=== PATIENT | female | born 1950 | race Caucasian/White ===

== ENCOUNTER 2019-04-09 16:14 | Emergency (ER) | payer MEDICARE, OTHER ==
[~2019-04-09] VITALS: Ht 172.7 cm; Wt 73.4 kg
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
--- NOTE | 2019-04-09 16:33 | NUR ---
Pt to 34 from lobby wearing mask
[2019-04-09] MEDS ORDERED: SODIUM CHLORIDE FLUSH 10ML SYR IVF ONE (17:30)
[2019-04-09 17:35] LABS: BASOPHILS # (AUTO) 0.02 x10^3/uL (0-0.1); BASOPHILS % (AUTO) 0 % (0-1); EOSINOPHILS # (AUTO) 0.04 x10^3/uL (0-0.4); EOSINOPHILS % (AUTO) 1 % (1-7); LYMPHOCYTES # (AUTO) 0.71 x10^3/uL (1-3.4); LYMPHOCYTES % (AUTO) 10 % (22-44); MD NO; MEAN CORPUSCULAR HEMOGLOBIN 33.2 pg (27.0-34.8); MEAN CORPUSCULAR HGB CONC 33.2 g/dL (32.4-35.8); MEAN PLATELET VOLUME 7.1 fL (7.4-10.4); MONOCYTES # (AUTO) 0.45 x10^3/uL (0.2-0.8); MONOCYTES % (AUTO) 6 % (2-9); NEUTROPHILS # (AUTO) 6.21 x10^3/uL (1.8-6.8); NEUTROPHILS % (AUTO) 84 % (42-75); PLATELET COUNT 302 x10^3/uL (130-400); RED BLOOD COUNT 4.05 x10^6/uL (3.82-5.3); RED CELL DISTRIBUTION WIDTH 13.7 % (9.6-15.2)
[2019-04-09 17:48] LABS: ALBUMIN 4.1 g/dL (3.4-5.0); ANION GAP 5 mmol/L (5-15); CALCIUM 9.1 mg/dL (8.5-10.1); CHLORIDE 101 mmol/L (98-107); CREATININE 0.87 mg/dL (0.55-1.02)
[2019-04-09 17:52] LABS: TROPONIN I < 0.015 ng/mL (0.000-0.045)
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
--- NOTE | 2019-04-09 18:24 | NUR ---
PT BACK FROM IMAGING.
--- NOTE | 2019-04-09 18:54 | NUR ---
BEDSIDE REPORT TO DANNY HARDIN.
[2019-04-09 19:01] VITALS: BP 137/76
--- NOTE | 2019-04-09 19:01 | NUR ---
RECEIVED REPORT FROM DANNY TOLLIVER. PT RESTING ON GURNEY. IRVIN VSS. PT REMAINS ON DROPLET PRECAUTIONS AND CONTACT PRECAUTIONS.
[2019-04-09] MEDS ORDERED: AZITHROMYCIN 500 MG TABLET PO ONE (19:30)
[2019-04-09] MEDS ORDERED: AZITHROMYCIN 250 MG TABLET ONE (19:36)
[2019-04-09] MEDS ORDERED: OMNIPAQUE 350 MG/ML, 100ML BOTTLE ONE (23:19)
== END 2019-04-09 19:51 | disposition home or self-care (01) ==
LOC: ED 19:45
DX: J18.9 Pneumonia, unspecified organism (principal); I10 Essential (primary) hypertension
CPT/HCPCS: 36415; 71045; 71275; 80048; 82040; 83880; 84484; 85025; 93005; 99284; J7512; Q9967